=== PATIENT | female | born 1985 | race Caucasian/White ===

== ENCOUNTER 2023-07-31 10:28 | Emergency (ER) | payer OTHER, SELFPAY ==
[2023-07-31 10:32] VITALS: BP 191/132
[2023-07-31 11:05] VITALS: BP 161/142
[2023-07-31 12:01] VITALS: BP 164/98
[2023-07-31 12:33] LABS: % Basophils 0.8 % (0-2); % Immature Granulocytes 0.2 % (0-0.5); % Lymphocytes 28.8 % (20.5-51.1); % Monocytes 11.8 % (1.7-9.3); % Neutrophils 54.4 % (42.2-75.2); Absolute Eosinophils 0.2 10^3/uL (0-0.7); Absolute Lymphocytes 1.4 10^3/uL (1.2-3.4); Absolute Monocytes 0.6 10^3/uL (0.1-0.6); Absolute Neutrophils 2.6 10^3/uL (1.4-6.5); Hematocrit 33.1 % (37.0-47.0); Hemoglobin 10.8 g/dL (12.0-16.0); Mean Corp Hgb Conc. 32.6 g/dL (33.0-37.0); Mean Corpuscular Hgb 25.5 pg (27.0-31.0); Mean Corpuscular Volume 78.1 fL (81.0-99.0); Mean Platelet Volume 9.4 fL (7.4-10.4); Nucleated Red Blood Cells % 0 %; Platelet Count 240 10^3/uL (130-400); Red Blood Cell Count 4.24 10^6/uL (4.20-5.40); Red Cell Dist. Width 15.2 % (11.5-14.5); White Blood Cell Count 4.8 10^3/uL (4.8-10.8)
[2023-07-31 12:41] LABS: HCG, Serum Qualitative Screen Negative
[2023-07-31 12:45] LABS: ALT (SGPT) 25 U/L (0-35); AST (SGOT) 30 U/L (14-36); Albumin 4.8 g/dl (3.5-5.0); Alkaline Phosphatase 65 U/L (38-126); Blood Urea Nitrogen 17 mg/dl (7-17); Carbon Dioxide 25 mmol/L (22-30); Chloride 105 mmol/L (98-107); Glucose 103 mg/dl (70-99); Potassium 5.1 mmol/L (3.5-5.1); Sodium 138 mmol/L (135-145); Total Bilirubin 0.4 mg/dl (0.2-1.3); Total Protein 7.6 g/dl (6.3-8.2); eGFR > 60.00
[2023-07-31 13:03] VITALS: BP 179/102
--- NOTE | 2023-07-31 13:48 | ED.GENMED ---
History of Present Illness
General
Chief Complaint: Vaginal Bleeding
Source: patient
Time Seen by Provider: 07/31/23 11:45
Nursing documentation reviewed up to this point in time: agreed with
Travel History
Have you had any contact with someone who has COVID-19?: No
Do you have any symptoms of coronavirus? Fever > 100 degrees, chills, cough, shortness of breath, sore throat, loss of taste or smell, muscle aches, or headache?: No
History of Present Illness
History of Present Illness:
Patient is a 38-year-old female with a history of remote heroin abuse sober for several years, history of symptomatic anemia in the past here for heavy vaginal bleeding over the last couple of days. Patient says that for the last 6+ months she has
had periods lasting 7 days long but are fairly heavy for 4 days causing her to use at least 1 pack of pads throughout that time. She has to wake up in the middle of the night and change her pad. She has some clots sometimes. There is no new
symptoms today than usual but she does not have an [employer]WORK [employer] and became concerned about the ongoing nature of this bleeding and the fact that she feels overall fatigued. Patient says she feels wiped out at times. She has been transfused in the past
only on a rare occasion. Patient is noncompliant with iron.
She has not ever taken contraceptives. She is a smoker. Of note the patient is hypertensive here and she says she is always had elevated blood pressure readings when she gets them checked. She says that she has never been treated for her blood
pressure before yet every time she gets it checked which is rarely it is elevated. Patient has a history of hypertension in her family. She has not had any vision changes, chest pain, shortness of breath, syncope, nausea or vomiting. Patient is
not on any blood thinner
Past History
Past History
ED Past Medical History: Other (anemia, kidney stones)
ED Past Surgical History: None
Social History
Alcohol: None
Drug: Former user and IVDA
Personal: Single
Living: with family
Review of Systems
Review of Systems
Allergies reviewed?: Yes
All Other Systems: Not applicable
Phy Exam
Physical Exam
Physical Exam:
GENERAL: Alert ,anxious
EYE: pupils equal and reactive
NECK: Supple
ENT: o/p clr, mmm.
CARDIAC: Regular rate and rhythm . tachy when i'm speaking with her
LUNGS: Clear breath sounds bilaterally, no acute respiratory distress, no wheezes/rales/rhonchi
ABDOMEN: Soft, nontender, no r/g, no cvat, normal bowel sounds
: no active bleeding
small blood in vault
nontender bimanual exam
NEUROLOGICAL: Alert and oriented, no focal neuro deficits
SKIN: Warm and dry, skin intact.
MUSCULOSKELETAL: No edema, well perfused.
PSYCH: Normal and appropriate interaction.
Ro JERRY
Course
Orders/Labs/Results
Orders:
Orders
07/31/23 11:57
Test Result ONCE
US Pelvis W Transvag Combined Urgent
Reason For Exam: heavy menstrual period
07/31/23 12:15
Complete Blood Count/With Diff Urgent
Comprehensive Metabolic Panel Urgent
HCG, Serum Qualitative Screen Urgent
07/31/23 13:44
Electrocardiogram (*1) Urgent
Reason for Study: Tachycardia
07/31/23 13:45
EKG- Treatment ONCE
Abnormal Lab Results
07/31/23
12:15
Hgb 10.8 L g/dL
(12.0-16.0)
Hct 33.1 L %
(37.0-47.0)
MCV 78.1 L fL
(81.0-99.0)
MCH 25.5 L pg
(27.0-31.0)
MCHC 32.6 L g/dL
(33.0-37.0)
RDW 15.2 H %
(11.5-14.5)
Monocytes % 11.8 H %
(1.7-9.3)
Glucose 103 H mg/dl
(70-99)
07/31/23 12:15
07/31/23 12:15
Vital Signs
Initial and Last Documented VS:
Initial Vital Signs
Temp Pulse Resp BP Pulse Ox
98.2 F 89 18 191/132 97
07/31/23 10:32 07/31/23 10:32 07/31/23 10:32 07/31/23 10:32 07/31/23 10:32
Last Documented Vital Signs
Temp Pulse Resp BP Pulse Ox
98.2 F 87 20 179/102 97
07/31/23 10:32 07/31/23 13:45 07/31/23 13:45 07/31/23 13:03 07/31/23 10:32
MDM/Problems Addressed
Differential Diagnosis Includes:
Anxiety, asymptomatic hypertension, anemia, dysmenorrhea, menorrhagia
MDM/Problems Addressed:
38 y/o F wtih h/o heavy periods the past 6 mo
feeling fatigue overall
no cp, sob, syncope
this menstual cycle started 3 days ago
no change to this one than others
pt decided to be checked out
hypertensive probably chronic but also related to anxiety
not snigifcnatly bleeding on exam
no murmur
labs appreciated, hg 10.8, higher than previous
ekg
discussed starting oral med for bp
i think it is a good idea, given her family history
will trial amlodipine 2.5 mg
recommend close f/u
doesn't have pcp, will refer to famiy practice [facility].
*Critical Care Note
Total Time (30-74mins, 75-104mins- exclusive of procedures): Not Applicable
ED Attending Note
-
Portions of this chart may have been created with voice recognition software.� Occasional wrong word or��sound alike� substitutions may have occurred due to the inherent limitations of voice recognition software.
Discharge Plan
Departure
Patient Disposition: Home (Routine Discharge)
Date of Disposition: 07/31/23
Time of Disposition: 13:56
Patient with high blood pressure during this ER visit?: Yes
Condition: Fair
Covid-19: Not Applicable
Discharge Problem:
Elevated blood pressure reading, Menorrhagia
Instructions: Heavy Periods (DC), High Blood Pressure ED
Prescriptions:
New
amlodipine 2.5 mg tablet
2.5 mg PO DAILY Qty: 14 0RF
ferrous sulfate 325 mg (65 mg iron) tablet
325 mg PO DAILY Qty: 30 0RF
No Action
acetaminophen 325 MG tablet
650 mg PO Q4HPRN PRN (Reason: mild pain) 0RF
ibuprofen 600 MG tablet
600 mg PO Q4HPRN PRN (Reason: cramps) 0RF
Referrals:
UNKNOWN - PT DOES,NOT KNOW [Family Provider] -
Blanche Hilton MD [Active] - Follow up in 1 week (gyne)
Activity Restrictions/Additional Instructions:
you were mildly anemic. Take iron once or twice a day daily, make sure that you are taking a stool softener as well. Your ultrasound did not show any abnormal findings. You should follow-up with a firesetter, you may have the opportunity to
have some treatment like an IUD or another type of control that can help with your periods. Also your blood pressure was found to be elevated. You should have this rechecked because it was persistently high we are to start you on amlodipine
2.5 mg once a day. I prescribed you 2 weeks worth of medication. I did place a request to our family practice clinic to reach out to you regarding a follow-up appointment.
return for: severe bleeding, passing out, ches tpain, shortness of breath, or any concerns.
Interventions
Interventions:
*ED COVID-19 Vaccine History Last Done: 07/31/23 10:32
*Nursing Disposition Last Done: 07/31/23 14:13
ED-Female Genitourinary Assessment Last Done: 07/31/23 12:27
Discharge Date and Time
Discharge Date/Time: 07/31/23 14:13
Print Language: [id number]
== END 2023-07-31 14:13 | disposition home or self-care (01) ==
LOC: EMR 10:28
PROVIDERS: Physician Assistant; EMERGENCY PHYSICIAN Emergency Medicine
DX: N92.0 Excessive and frequent menstruation with regular cycle (principal); R53.83 Other fatigue; R51.9 Headache, unspecified; R03.0 Elevated blood-pressure reading, without diagnosis of hypertension; F11.11 Opioid abuse, in remission; D64.9 Anemia, unspecified; Z91.148 Patient's other noncompliance with medication regimen for other reason; F17.200 Nicotine dependence, unspecified, uncomplicated; Z87.442 Personal history of urinary calculi; Z82.49 Family history of ischemic heart disease and other diseases of the circulatory system
CPT/HCPCS: 99284; 76830; 76856; 80053; 84703; 85025; 93005